=== PATIENT | female | born 1990 | race Hispanic/Latino ===

== ENCOUNTER 2018-10-27 23:37 | Emergency (ER) | payer OTHER ==
[2018-10-28 00:20] LABS: APPEARANCE,URINE Clear (CLEAR); BILIRUBIN,URINE Negative (NEGATIVE); COLOR,URINE Yellow (YELLOW); GLUCOSE, URINE (UA) Negative (NEGATIVE); KETONES,URINE Negative (NEGATIVE); LEUKOCYTE ESTERASE ,URINE Negative (NEGATIVE); NITRATE,URINE Negative (NEGATIVE); OCCULT BLOOD,URINE Negative (NEGATIVE); PH,URINE 7.5 (5.0-8.0); PROTEIN,URINE Negative (NEGATIVE); UROBILINOGEN,URINE 0.2 mg/dL (0.2-1.0)
[2018-10-28 00:22] LABS: HCG,QUAL RESULT NEGATIVE (NEGATIVE)
[2018-10-28] MEDS ORDERED: BENZONATATE 100 MG CAPSULE PO ONE (01:18)
[2018-10-28] MEDS ORDERED: KETOROLAC TROMETHAMINE 60 MG/2 ML VIAL ONE (01:18)
[2018-10-28] MEDS ORDERED: ACETAMINOPHEN-CODEINE 300/30MG TAB ONE (01:41)
== END 2018-10-28 01:50 | disposition home or self-care (01) ==
LOC: EDH 23:37
DX: M94.0 Chondrocostal junction syndrome [Tietze] (principal)
CPT/HCPCS: 71045; 76705; 81003; 81025; 96372; 99284; J1885